=== PATIENT | female | born 1965 ===

== ENCOUNTER 2024-03-27 06:00 | Day surgery (SDC) | payer OTHER ==
[~2024-03-27 06:00] MED LIST: CYMBALTA30 MG PO; LIPITOR40 M1 PO; SYNTHROID75 MCG PO
[2024-03-27] MEDS ORDERED: CHLORHEXIDINE GLUCONATE 120 ML BOTTLE TOP ONE (10:00)
[2024-03-27] MEDS ORDERED: VANCOMYCIN HCL 1,000 MG VIAL IR ONE (10:00)
[2024-03-27] MEDS ORDERED: CEFAZOLIN SODIUM 1,000 MG VIAL IV ONE (10:00)
[2024-03-27] MEDS ORDERED: LIDOCAINE HCL 2%/EPINEPHRINE 20ML VIAL IJ ONE (10:00)
[2024-03-27] MEDS ORDERED: MACROBID 100 M100 MG PO (10:31)
[2024-03-27] MEDS ORDERED: TRAM1TAB98 PO (10:32)
== END 2024-03-27 13:00 | disposition home or self-care (01) ==
LOC: CIR.AMB 06:00
PROVIDERS: ATTEND Obstetrics & Gynecology Gynecology
DX: N39.3 Stress incontinence (female) (male) (principal); Z88.1 Allergy status to other antibiotic agents; F41.8 Other specified anxiety disorders; E03.9 Hypothyroidism, unspecified; I10 Essential (primary) hypertension
CPT/HCPCS: 57288; C1771